=== PATIENT | female | born 1930 | race Caucasian/White ===

== ENCOUNTER → 2017-06-09 | Outpatient (CLI) | payer MEDICARE, OTHER ==
[2017-06-09 09:34] LABS: Blood Urea Nitrogen 31 mg/dL (7-17)
== END | disposition home or self-care (01) ==
LOC: LABWHC1 08:46
PROVIDERS: ATTEND Internal Medicine
DX: G45.3 Amaurosis fugax (principal)
CPT/HCPCS: 36415; 82565; 84520

== ENCOUNTER → 2017-06-12 | Outpatient (CLI) | payer MEDICARE, OTHER ==
--- NOTE | 2017-06-12 09:47 | MR ---
EXAMINATION TYPE: MR angio head wo con DATE OF EXAM: 06/12/2017 COMPARISON: NONE HISTORY: Amaurosis fugax TECHNIQUE: Time of flight images focusing on the [place] were performed without contrast. FINDINGS: Distal vertebral arteries visualized are normal. Basilar artery appears unremarkable. Posterior cereb ral vasculature appears normal. The posterior communicating arteries are patent bilaterally. The ante rior communicating artery is patent. Internal carotid arteries bifurcate normally into A1 and M1 segm ents. M2 segments appear unremarkable. A2 segments appear unremarkable. Ophthalmic arteries and their origins appear normal. IMPRESSION: Normal [place].
--- NOTE | 2017-06-12 10:25 | MR ---
EXAMINATION TYPE: MR brain wo/w con DATE OF EXAM: 06/12/2017 COMPARISON: NONE HISTORY: Amaurosis fugax CONTRAST: Performed utilizing 5 mL intravenous Gadavist gadolinium contrast. TECHNIQUE: Multiplanar, multiecho imaging on a 3.0 Sarah magnet is performed through the brain. Stud y is performed within 24 hours of arrival to the hospital. The craniovertebral junction is normal. The pituitary is mild rounding but no enlargement. This is s lightly unusual in the patient of this age. Diffusion-weighted imaging is performed. No abnormal hyperintensity is present to suggest an acute i ntracranial infarct or acute ischemic change. There are a few scattered deep white matter hyperintensities on T2 and inversion recovery weighted se quences, most likely on the basis of chronic white matter ischemic change. No acute changes are evide nt. Occipital lobes appear normal. Venous angioma in the left vertex is not excluded. Orbits and opti c nerves and optic chiasm is visualized appear unremarkable. Ventricles and sulci are slightly prominent for the patient age. No abnormal enhancement is evident. IMPRESSIONS: 1. Mild scattered chronic appearing white matter ischemic changes. 2. No acute intracranial process.
== END | disposition home or self-care (01) ==
LOC: RADMRIMAIN 08:02
PROVIDERS: ATTEND Internal Medicine
DX: G45.3 Amaurosis fugax (principal)
CPT/HCPCS: 70544; 70553; A9581

== ENCOUNTER → 2020-03-05 | Outpatient (CLI) | payer MEDICARE, OTHER ==
--- NOTE | 2020-03-06 13:33 | ECHOF ---
Referral Reason:I49.9 Cardiac arrhythmia MEASUREMENTS -------- HEIGHT: 147.3 cm WEIGHT: 54.0 kg BP: 162/88 IVSd: 1.2 cm (0.6 - 1.1) LVIDd: 4.5 cm (3.9 - 5.3) LVPWd: 1.1 cm (0.6 - 1.1) EDV(Teich): 93 ml IVSs: 1.7 cm LVIDs: 3.2 cm LVPWs: 1.7 cm %IVS Thck: 38 % ESV(Teich): 41 ml EF(Teich): 55 % %FS: 29 % SV(Teich): 51 ml LA Diam: 2.7 cm (2.7 - 3.8) RVIDd: 3.1 cm (< 3.3) IVC: 20.35 mm LALs A4C: 5.8 cm LAAs A4C: 18.6 cm LAESV A-L A4C: 50 ml LAESV MOD A4C: 48 ml LALs A2C: 5.7 cm LAAs A2C: 14.9 cm LAESV A-L A2C: 33 ml LAESV MOD A2C: 30 ml LAESV(A-L): 41 ml LAESV Index (A-L): 28.13 ml/m Ao Diam: 3.6 cm (2.0 - 3.7) AV Cusp: 1.9 cm (1.5 - 2.6) EPSS: 0.2 cm MV E Jimbo: 0.57 m/s MV DecT: 196 ms MV Dec [place]: 2.9 m/s MV A Jimbo: 1.27 m/s MV E/A Ratio: 0.45 MV PHT: 57 ms LVOT Vmax: 1.71 m/s LVOT maxP.76 mmHg AV Vmax: 1.80 m/s AV maxP.93 mmHg AV Vmax: 1.83 m/s AV Vmean: 1.18 m/s AV maxP.34 mmHg AV meanP.34 mmHg AV Env.Ti: 332 ms AV VTI: 39.1 cm AR Vmax: 4.36 m/s AR maxP.92 mmHg AR PHT: 601 ms AR Dec Time: 2071 ms AR Dec [place]: 2.1 m/s TR Vmax: 2.31 m/s TR maxP.30 mmHg RAP: 5.00 mmHg RVSP: 26.30 mmHg MV EF SLOPE: 42.79 mm/s (70 - 150) MV EXCURSION: 11.84 mm (> 18.000) FINDINGS -------- Sinus rhythm. This was a technically adequate study. The left ventricular size is normal. There is borderline concentric left ventricular hypertrophy. Overall left ventricular systolic function is normal with, an EF between 60 - 65 %. Sigmoid shaped septum with focal hypertrophy of the basal septum. The remaining wall thickness is normal. The right ventricle is normal in size. Normal LA size by volume 22+/-6 ml/m2. The right atrium is normal in size. Interatrial and interventricular septum intact. There is moderate aortic valve sclerosis. There is mild aortic regurgitation. There is mild aorti c stenosis present. Peak/mean gradient across the Aortic Valve is 13.34mmHg / 6.34mmHg. The mitral valve leaflets are mildly thickened. Mild mitral annular calcification present. Mild tricuspid regurgitation present. Right ventricular systolic pressure is normal at < 35 mmHg. Trace/mild (physiologic) pulmonic regurgitation. The aortic root size is normal. Normal inferior vena cava with normal inspiratory collapse consistent with estimated right atrial pre ssure of 5 mmHg. There is no pericardial effusion. CONCLUSIONS -------- 1. The left ventricular size is normal. 2. There is borderline concentric left ventricular hypertrophy. 3. Overall left ventricular systolic function is normal with, an EF between 60 - 65 %. 4. Sigmoid shaped septum with focal hypertrophy of the basal septum. The remaining wall thickness is normal. 5. There is moderate aortic valve sclerosis. 6. There is mild aortic stenosis present. 7. Peak/mean gradient across the Aortic Valve is 13.34mmHg / 6.34mmHg. 8. The mitral valve leaflets are mildly thickened. 9. Mild mitral annular calcification present. 10. Mild tricuspid regurgitation present. 11. Trace/mild (physiologic) pulmonic regurgitation. 12. There is no pericardial effusion. CLEANING SPECIALIST: Racheal Yan [facility]
== END | disposition home or self-care (01) ==
LOC: RADECHMAIN 14:34
PROVIDERS: ATTEND Family Medicine
DX: I35.8 Other nonrheumatic aortic valve disorders (principal); I35.0 Nonrheumatic aortic (valve) stenosis; I05.9 Rheumatic mitral valve disease, unspecified; I70.8 Atherosclerosis of other arteries; I07.1 Rheumatic tricuspid insufficiency; I37.1 Nonrheumatic pulmonary valve insufficiency
CPT/HCPCS: 93306